=== PATIENT | female | born 1975 | race Caucasian/White ===

== ENCOUNTER 2024-10-14 17:02 | Emergency (ER) | payer BC, SELFPAY ==
[2024-10-14 17:03] VITALS: BP 108/66
--- NOTE | 2024-10-14 18:08 | ED.GENMED ---
History of Present Illness
General
Chief Complaint: Headache
Source: patient
Time Seen by Provider: 10/14/24 17:54
History of Present Illness
History of Present Illness:
49-year-old female presents emergency department complaints of a headache described as 'pounding' associated with mild photophobia which she noticed when she woke up this morning. She took her migraine medication and felt a little bit better, but
the pain has gotten gradually worse throughout the day associated with nausea, nonbloody vomiting and now 'dry heaves'. She denies exacerbating relieving factors, chest pain, neck pain,, abdominal pain, numbness, tingling, focal weakness, double
vision, blurry vision. As is typical with a migraine, she states that her peripheral vision seems slightly off but improving.
Past History
Past History
ED Past Medical History: Other (Lupus, Guillian rudolph, Sjogren's Syndrome, mast cell activation syndrome, migraines)
ED Past Surgical History: Appendectomy and Other (face lift X 2, Sinus rebuilt, Adhesions)
Social History
Tobacco: Non-smoker
Alcohol: None
Drug: None
Personal:
Living: alone
Employment: Employed
Phy Exam
Physical Exam
Physical Exam:
GENERAL: Alert , in no apparent distress
EYE: pupils equal and reactive, no objective photophobia, EOMI
NECK: Supple, no significant adenopathy.
ENT: o/p clr, mmm.
CARDIAC: Regular rate and rhythm .
LUNGS: Clear breath sounds bilaterally, no acute respiratory distress, no wheezes/rales/rhonchi
ABDOMEN: Soft, without focal tenderness, no r/g, no cvat
NEUROLOGICAL: Alert and oriented, no focal neuro deficits, [id number] normal, motor 5 out of 5, sensory intact, cranial nerves II through XII intact, visual pettit intact
SKIN: Warm and dry, skin intact.
MUSCULOSKELETAL: No edema, well perfused.
PSYCH: Normal and appropriate interaction.
Course
Orders/Labs/Results
Orders:
Orders
10/14/24 18:07
Cardiac Monitoring- Treatment ONCE
0.9% Sodium Chloride 1000 ml [Nss] 1,000 ml IV BOLUS
Ketorolac [Toradol] 15 mg IV NOW STA
Ondansetron Injectable [Zofran] 4 mg IV NOW STA
10/14/24 18:08
Electrocardiogram (*1) Stat
Reason for Study: Other
Other Reason for Exam: Headache
EKG- Treatment ONCE
Test Result ONCE
10/14/24 18:35
Basic Metabolic Panel Urgent
Complete Blood Count/No Diff Urgent
HCG, Serum Qualitative Screen Urgent
10/14/24 18:35
10/14/24 18:35
Vital Signs
Initial and Last Documented VS:
Initial Vital Signs
Temp Pulse Resp BP Pulse Ox
97.8 F 77 19 108/66 99
10/14/24 17:03 10/14/24 17:03 10/14/24 17:03 10/14/24 17:03 10/14/24 17:03
Last Documented Vital Signs
Temp Pulse Resp BP Pulse Ox
97.8 F 63 18 104/50 97
10/14/24 17:03 10/14/24 20:00 10/14/24 20:00 10/14/24 20:00 10/14/24 20:00
*Pulse Oximetry
SaO2: 99
Oxygen Mode of Delivery: Room air
Patient hypoxic: no
*Critical Care Note
Total Time (30-74mins, 75-104mins- exclusive of procedures): Not Applicable
Update Note
Update Note:
Patient presents to the Emergency Department with headache nausea _vomiting
Number and Complexity of Problems Addressed at the Encounter
� Chronic conditions affecting care:
� Acute Exacerbation and/or Progression of Chronic Illness:
� Differential Diagnosis includes: But not limited to gastroenteritis, intractable migraine, tension headache, dehydration, electrolyte disorder etc. etc.
Amount and/or Complexity of Data to be Reviewed and Analyzed
� I performed an independent evaluation of and my interpretation is:
EKG: Read by me, normal sinus rhythm, normal rate, normal axis, no acute ischemia
CT:
Xrays:
Laboratory Studies: hCG negative, generally unremarkable
Other:
� Review of other/old records reveals:
� Clinical information was obtained by an independent historian:
� Prescriptions/Medications Considered but not given:
� Further testing considered but not performed:
Risk of Complications and/or Morbidity or Mortality of Patient Management
� Social determinants of health affecting care:
� Discussion with other providers (PCP, Hospitalists, Consultants, etc):
� Escalation of care including admission/observation vs risk of discharge considered: 8:46 PM observation. Here, status post meds, patient slept for some time and is now awake and alert, stood up and still feels well without
headache or other symptoms. No vomiting since arrival here. Patient would like to go home given she feels so much better. Discussed with her importance of follow-up and reasons to return the ER. No 'red flag findings in her history or physical
such as abrupt onset, associated neurological findings, etc.
ED Attending Note
-
Portions of this chart may have been created with voice recognition software.� Occasional wrong word or��sound alike� substitutions may have occurred due to the inherent limitations of voice recognition software.
Discharge Plan
Departure
Patient Disposition: Home (Routine Discharge)
Date of Disposition: 10/14/24
Time of Disposition: 20:45
Patient with high blood pressure during this ER visit?: No
Condition: Good
Discharge Problem:
Migraine
Instructions: Migraines (DC)
Prescriptions:
No Action
ondansetron 4 mg Tablet,Disintegrating
4 mg PO TIDPRN PRN (Reason: nausea/vomiting) Qty: 14 0RF
benzonatate 100 mg capsule
100 mg PO TID PRN (Reason: Cough) Qty: 20 0RF
Referrals:
aRymond Ramírez DO [Family Provider, Family Practice]
Activity Restrictions/Additional Instructions:
IF YOU DEVELOP SEVERE HEADACHE, REPEATED VOMITING, NECK PAIN OR STIFFNESS, VISUAL CHANGES, NUMBNESS, TINGLING, CHANGE IN SPEECH, CHANGE IN BALANCE, OR OTHER WORRISOME SIGNS, PLEASE RETURN TO THE ER IMMEDIATELY!
Interventions
Interventions:
*Risk Screen - Suicide Last Done: 10/14/24 17:05
*General Assessment Last Done: 10/14/24 17:05
*Neglect/Abuse Screening Last Done: 10/14/24 17:05
*ED- Fall Risk Assessment Last Done: 10/14/24 18:21
*ED COVID-19 Vaccine History Last Done: 10/14/24 18:21
ED- Neurological Assessment Last Done: 10/14/24 18:21
Discharge Date and Time
Print Language: [place] CITIZ[place]
[2024-10-14 18:20] VITALS: BMI 18.3
[2024-10-14 18:24] VITALS: BP 118/59
[2024-10-14 18:48] LABS: Hematocrit 38.5 % (37.0-47.0); Hemoglobin 12.9 g/dL (12.0-16.0); Mean Corp Hgb Conc. 33.5 g/dL (33.0-37.0); Mean Corpuscular Volume 90.8 fL (81.0-99.0); Platelet Count 249 10^3/uL (130-400); Red Cell Dist. Width 14.1 % (11.5-14.5)
[2024-10-14] MEDS: TORADOL 15 MG IV (18:49)
[2024-10-14] MEDS: ZOFRAN 4 MG IV (18:49)
[2024-10-14] MEDS: NSS 1000 IV (18:50)
[2024-10-14 19:00] VITALS: BP 118/55
[2024-10-14 19:09] LABS: HCG, Serum Qualitative Screen Negative
[2024-10-14 19:16] LABS: Blood Urea Nitrogen 11 mg/dl (7-17); Calcium 9.3 mg/dl (8.4-10.2); Carbon Dioxide 25 mmol/L (22-30); Chloride 106 mmol/L (98-107); Estimated Creatinine Clearance 73 ml/min; Glucose 83 mg/dl (70-99); Sodium 135 mmol/L (135-145); eGFR > 60.00
[2024-10-14 20:00] VITALS: BP 104/50
[2024-10-14 21:00] VITALS: BP 102/52
[2024-10-14 21:35] VITALS: BP 110/59
== END 2024-10-14 21:55 | disposition home or self-care (01) ==
LOC: EMR 17:02
PROVIDERS: EMERGENCY PHYSICIAN Emergency Medicine; FAMILY PHYSICIAN Family Medicine
DX: G43.909 Migraine, unspecified, not intractable, without status migrainosus (principal); R11.2 Nausea with vomiting, unspecified; M32.9 Systemic lupus erythematosus, unspecified; M35.00 Sjogren syndrome, unspecified; D89.40 Mast cell activation, unspecified; G61.0 Guillain-Barre syndrome; Z88.2 Allergy status to sulfonamides; Z88.8 Allergy status to other drugs, medicaments and biological substances
CPT/HCPCS: 99284; 96374; 96375; 96361; 80048; 84703; 85027; 93005